=== PATIENT | male | born 1960 | race Caucasian/White ===

== ENCOUNTER 2018-04-05 03:42 | Emergency (ER) | payer MEDICAID ==
[~2018-04-05] VITALS: Ht 180.3 cm; Wt 81.0 kg
[~2018-04-05 03:42] MED LIST: CEPH-572 PO; NO HOME MEDS
[2018-04-05] MEDS ORDERED: ketorolac tromethamine 15mg/ml inj. IM ONE (04:10)
[2018-04-05] MEDS ORDERED: TETanus/Pertussis (Acell)/Diphther VAC/PF (Tdap-Adult) 0.5ml syringe IM ONE (04:10)
[2018-04-05] MEDS ORDERED: cephalexin 500mg capsule PO ONE (04:15)
[2018-04-05] MEDS ORDERED: sulfamethoxazole/trimethoprim DS (800/160mg) tablet PO ONE (04:15)
[2018-04-05] MEDS ORDERED: SULF1TAB49 PO (04:51)
[2018-04-05] MEDS ORDERED: CEPH-572 PO (04:51)
[2018-04-05 05:07] VITALS: BP 152/84
== END 2018-04-05 05:21 | disposition home or self-care (01) ==
LOC: ER 03:42
DX: L02.414 Cutaneous abscess of left upper limb (principal); L03.114 Cellulitis of left upper limb
CPT/HCPCS: 10061; 87070; 87077; 87186; 90471; 90715; 96372; 99284; J1885